=== PATIENT | female | born 1980 | race Two or more races ===

== ENCOUNTER 2019-03-29 05:45 | Inpatient (IN) | payer BC ==
[2019-03-29] MEDS ORDERED: OXYTOCIN 30 UNITS/LR 500 ML IV ×2 (06:00→09:00)
[2019-03-29] MEDS ORDERED: CEFAZOLIN 2 GM/50 ML (PMX) 50 ML IVPB (06:00)
[2019-03-29] MEDS ORDERED: METHYLERGONOVINE 0.2 MG INJ IM ×2 (06:00→09:00)
[2019-03-29] MEDS ORDERED: MISOPROSTOL 200 MCG TAB PR ×2 (06:00→09:00)
[2019-03-29] MEDS ORDERED: CARBOPROST 250 MCG INJ IM ×2 (06:00→09:00)
[2019-03-29] MEDS: LACTATED RINGER'S 1,000 ML IV ×2 (06:32→22:21)
[2019-03-29 06:33] LABS: ADD MAN DIFF? NO
[2019-03-29 06:34] LABS: WHITE BLOOD COUNT 9.8 10^3/ul (4.8-10.8)
[2019-03-29 06:34] LABS: ABNORMAL IP MESSAGE 1; BASOPHILS % 0.4 % (0.0-2.0); EOSINOPHILS # 0.2 10^3/ul (0.0-0.5); EOSINOPHILS % 1.5 % (0.0-7.0); HEMATOCRIT 29.5 % (37.0-47.0); HEMOGLOBIN 9.4 g/dl (12.0-16.0); LYMPHOCYTES # 2.3 10^3/ul (0.8-2.9); MEAN CORPUSCULAR HGB CONC 31.9 g/dl (32.0-37.0); MEAN CORPUSCULAR VOLUME 62.9 fl (82.0-101.0); MONOCYTE # 0.9 10^3/ul (0.3-0.9); NEUTROPHIL # 6.5 10^3/ul (1.6-7.5); NEUTROPHILS % 65.7 % (39.0-77.0); PLATELET COUNT 165 10^3/UL (140-415); RED BLOOD COUNT 4.69 10^6/ul (4.20-5.40); RED CELL DISTRIBUTION WIDTH 15.7 % (11.5-14.5)
[2019-03-29 06:36] LABS: POSITIVE DIFF @See below
[2019-03-29 06:55] LABS: INR 0.89; PROTIME 12.2 Sec (11.9-14.9)
[2019-03-29 06:56] LABS: PARTIAL THROMBOPLASTIN TIME 25.5 Sec (23.0-35.0)
[2019-03-29 07:23] LABS: HEPATITIS B SURFACE ANTIGEN NEGATIVE (NEGATIVE)
[2019-03-29] MEDS ORDERED: ONDANSETRON 4 MG INJ (07:37)
[2019-03-29] MEDS ORDERED: CITRIC ACID/NA CITRATE 30 ML CUP (07:37)
[2019-03-29] MEDS ORDERED: FENTAnyl 50 MCG/ML VIAL (07:58)
[2019-03-29] MEDS ORDERED: morphine SULFATE/PF (10 MG/10 ML) INJ (07:58)
[2019-03-29] MEDS ORDERED: METOCLOPRAMIDE 10 MG INJ (07:58)
[2019-03-29] MEDS ORDERED: OXYTOCIN 10 UNIT INJ (07:58)
[2019-03-29] MEDS ORDERED: OXYCODONE/ACETAMINOPHEN (5/325) TAB PO ×2 (09:00)
[2019-03-29] MEDS ORDERED: MEPERIDINE 25 MG INJ IV (09:00)
[2019-03-29] MEDS ORDERED: ONDANSETRON 4 MG INJ IV ×3 (09:00)
[2019-03-29] MEDS ORDERED: NALBUPHINE HCL (10 MG/1 ML) INJ IV (09:00)
[2019-03-29] MEDS ORDERED: hydrALAzine 20 MG INJ IV (09:00)
[2019-03-29] MEDS ORDERED: NALOXONE (0.4 MG/ML) INJ IV (09:00)
[2019-03-29] MEDS ORDERED: FENTAnyl 50 MCG/ML VIAL IV ×3 (09:00)
[2019-03-29] MEDS ORDERED: DIPHENHYDRAMINE 50 MG INJ IV (09:00)
[2019-03-29] MEDS ORDERED: HYDROmorphONE 1 MG/5 ML IV SYRINGE IV ×2 (09:00)
[2019-03-29] MEDS ORDERED: NACL 0.9% 3 ML SYG IV (09:00)
[2019-03-29] MEDS ORDERED: EPHEDrine 25 MG/5 ML SYG IV (09:00)
[2019-03-29] MEDS ORDERED: LABETALOL HCL 20MG INJ IV (09:00)
[2019-03-29] MEDS ORDERED: TRIMETHOBENZAMIDE 100 MG/ML VIAL IM ×2 (09:00)
[2019-03-29] MEDS ORDERED: IPRATROPIUM (NEB) 0.5 MG/2.5 ML AMP HHN (09:00)
[2019-03-29] MEDS ORDERED: OXYCODONE/ASPIRIN (4.88/325) TAB PO ×2 (09:00)
[2019-03-29] MEDS ORDERED: morphine 2 MG INJ IV ×2 (09:00)
[2019-03-29] MEDS ORDERED: MIDAZOLAM 1 MG/ML 2 ML INJ IV (09:00)
[2019-03-29] MEDS ORDERED: ALBUTEROL 0.083% (NEB) 2.5 MG/3 ML AMP HHN (09:00)
[2019-03-29] MEDS: CITRIC ACID/NA CITRATE 30 ML CUP PO (09:04)
[2019-03-29] MEDS: ONDANSETRON 4 MG INJ IV (09:04)
[2019-03-29] MEDS: OXYTOCIN 30 UNITS/LR 500 ML IV ×2 (09:11→13:09)
[2019-03-29] MEDS: CEFAZOLIN 2 GM/50 ML (PMX) 50 ML IVPB (09:12)
[2019-03-29] MEDS: HYDROmorphONE 1 MG/5 ML IV SYRINGE IV ×2 (12:26→13:06)
[2019-03-29] MEDS: KETOROLAC 30 MG INJ IV ×2 (13:11→22:17)
[2019-03-29 16:35] LABS: RAPID PLASMA REAGIN NONREACTIVE (NR)
[2019-03-29] MEDS: WITCH HAZEL/GLYCERIN PAD PR (19:09)
[2019-03-30] MEDS: LACTATED RINGER'S 1,000 ML IV ×3 (01:04→13:57)
[2019-03-30] MEDS: DIPHENHYDRAMINE 50 MG INJ IV (01:05)
[2019-03-30] MEDS: KETOROLAC 30 MG INJ IV (05:43)
[2019-03-30 06:58] LABS: ADD MAN DIFF? NO
[2019-03-30 07:00] LABS: ABNORMAL IP MESSAGE 1; BASOPHILS % 0.2 % (0.0-2.0); EOSINOPHILS # 0.1 10^3/ul (0.0-0.5); EOSINOPHILS % 0.6 % (0.0-7.0); HEMATOCRIT 21.9 % (37.0-47.0); LYMPHOCYTES # 1.5 10^3/ul (0.8-2.9); LYMPHOCYTES % 14.5 % (15.0-51.0); MEAN CORPUSCULAR HEMOGLOBIN 19.9 pg (29.0-33.0); MEAN CORPUSCULAR VOLUME 62.2 fl (82.0-101.0); MONOCYTE # 0.8 10^3/ul (0.3-0.9); MONOCYTES % 7.8 % (0.0-11.0); NEUTROPHIL # 7.9 10^3/ul (1.6-7.5); NEUTROPHILS % 76.4 % (39.0-77.0); PLATELET COUNT 135 10^3/UL (140-415); RED BLOOD COUNT 3.52 10^6/ul (4.20-5.40); RED CELL DISTRIBUTION WIDTH 15.8 % (11.5-14.5)
[2019-03-30 07:00] LABS: WHITE BLOOD COUNT 10.4 10^3/ul (4.8-10.8)
[2019-03-30 07:01] LABS: POSITIVE DIFF @See below
[2019-03-30] MEDS: IBUPROFEN 800 MG TAB PO ×2 (12:21→17:46)
[2019-03-30] MEDS: FERROUS SULFATE (EC) 325 MG TAB PO ×2 (12:23→21:00)
[2019-03-30] MEDS: SENNA/DOCUSATE NA (8.6MG/50MG) TAB PO ×2 (14:25→21:03)
[2019-03-30] MEDS: OXYCODONE/ACETAMINOPHEN (5/325) TAB PO ×2 (16:39→22:49)
[2019-03-30] MEDS ORDERED: OXYCODONE/ACETAMINOPHEN (5/325) TAB PO ×2 (17:00)
[2019-03-30] MEDS ORDERED: NA PHOSPHATE/BIPHOS 133 ML ENEMA PR (20:30)
[2019-03-30] MEDS: MAGNESIUM HYDROXIDE 30ML CUP PO (21:03)
[2019-03-31] MEDS: IBUPROFEN 800 MG TAB PO ×5 (00:44→23:59)
[2019-03-31] MEDS: BISACODYL 10 MG SUPP PR (05:39)
[2019-03-31] MEDS: OXYCODONE/ACETAMINOPHEN (5/325) TAB PO ×5 (06:31→23:11)
[2019-03-31 08:21] LABS: ADD MAN DIFF? NO
[2019-03-31 08:32] LABS: WHITE BLOOD COUNT 10.7 10^3/ul (4.8-10.8)
[2019-03-31 08:32] LABS: ABNORMAL IP MESSAGE 1; BASOPHIL # 0.1 10^3/ul (0.0-0.1); BASOPHILS % 0.5 % (0.0-2.0); EOSINOPHILS # 0.3 10^3/ul (0.0-0.5); EOSINOPHILS % 2.3 % (0.0-7.0); LYMPHOCYTES # 2.1 10^3/ul (0.8-2.9); LYMPHOCYTES % 19.5 % (15.0-51.0); MEAN CORPUSCULAR HGB CONC 31.8 g/dl (32.0-37.0); MEAN CORPUSCULAR VOLUME 62.9 fl (82.0-101.0); MONOCYTES % 9.5 % (0.0-11.0); NEUTROPHIL # 7.2 10^3/ul (1.6-7.5); NEUTROPHILS % 67.7 % (39.0-77.0); PLATELET COUNT 158 10^3/UL (140-415); RED CELL DISTRIBUTION WIDTH 15.5 % (11.5-14.5)
[2019-03-31 08:38] LABS: POSITIVE DIFF @See below
[2019-03-31] MEDS: FERROUS SULFATE (EC) 325 MG TAB PO ×3 (09:00→21:00)
[2019-03-31] MEDS: MAGNESIUM HYDROXIDE 30ML CUP PO (14:48)
[2019-03-31] MEDS: SENNA/DOCUSATE NA (8.6MG/50MG) TAB PO (21:41)
[2019-04-01] MEDS: OXYCODONE/ACETAMINOPHEN (5/325) TAB PO ×2 (04:27→13:23)
[2019-04-01] MEDS: IBUPROFEN 800 MG TAB PO ×2 (06:23→12:10)
[2019-04-01] MEDS: BISACODYL 10 MG SUPP PR ×2 (06:31→08:00)
[2019-04-01] MEDS: FERROUS SULFATE (EC) 325 MG TAB PO ×2 (09:00→12:11)
== END 2019-04-01 16:16 | disposition home or self-care (01) | DRG 785 ==
LOC: L-D 05:45 → PP1 13:38
PROVIDERS: Obstetrics & Gynecology
PROC: 10D00Z1 Extraction of Products of Conception, Low, Open Approach (ICD-10-PCS; principal; 2019-03-29 07:30)
PROC: 0UB70ZZ Excision of Bilateral Fallopian Tubes, Open Approach (ICD-10-PCS; 2019-03-29 07:30)
DX: O82 Encounter for cesarean delivery without indication (principal); Z3A.39 39 weeks gestation of pregnancy; Z37.0 Single live birth; Z30.2 Encounter for sterilization
CPT/HCPCS: 85025; 85610; 85730; 86592; 86850; 86900; 86901; 87340; 88302; 99464

== ENCOUNTER 2019-04-23 19:46 | Emergency (ER) | payer BC | END 2019-04-23 21:46 | disposition home or self-care (01) | LOC: E/R 19:46 | DX: T81.30XA Disruption of wound, unspecified, initial encounter (principal); L03.311 Cellulitis of abdominal wall; Y82.9 Unspecified medical devices associated with adverse incidents | CPT/HCPCS: 99283; Z7502 ==